=== PATIENT | female | born 1965 | race Caucasian/White ===

== ENCOUNTER 2016-07-23 10:49 | Emergency (ER) | payer SELFPAY ==
[~2016-07-23] VITALS: Ht 172.7 cm; Wt 83.5 kg
[2016-07-23 10:52] VITALS: BP 113/76
== END 2016-07-23 11:34 | disposition home or self-care (01) ==
LOC: ED 11:28
DX: Z76.0 Encounter for issue of repeat prescription (principal); E03.9 Hypothyroidism, unspecified; F32.9 Major depressive disorder, single episode, unspecified
CPT/HCPCS: 99283

== ENCOUNTER 2016-07-26 20:59 | Emergency (ER) | payer MEDICARE ==
[~2016-07-26] VITALS: Ht 172.7 cm; Wt 84.3 kg
[2016-07-26 21:01] VITALS: BP 123/82
[2016-07-26] MEDS ORDERED: KETOROLAC 30 MG/1 ML IM ONE (22:00)
[2016-07-26] MEDS ORDERED: OXYcodone/APAP 5/325MG TABLET PO ONE (22:00)
[2016-07-26] MEDS ORDERED: OXYcodone/APAP 5/325MG TABLET ONE (22:04)
[2016-07-26] MEDS ORDERED: KETOROLAC 30 MG/1 ML ONE (22:04)
== END 2016-07-26 22:19 | disposition home or self-care (01) ==
LOC: ED 22:15
DX: M54.9 Dorsalgia, unspecified (principal); G89.29 Other chronic pain; E03.9 Hypothyroidism, unspecified; M79.7 Fibromyalgia; D64.9 Anemia, unspecified
CPT/HCPCS: 96372; 99283; J1885

== ENCOUNTER 2017-06-01 20:40 | Emergency (ER) | payer MEDICARE ==
[~2017-06-01] VITALS: Ht 172.7 cm; Wt 81.5 kg
[2017-06-01 20:42] VITALS: BP 101/68
== END 2017-06-01 22:47 | disposition home or self-care (01) ==
LOC: ED 22:30
DX: G89.29 Other chronic pain (principal); M79.652 Pain in left thigh; Z76.0 Encounter for issue of repeat prescription; E03.9 Hypothyroidism, unspecified; M79.7 Fibromyalgia; Z90.49 Acquired absence of other specified parts of digestive tract
CPT/HCPCS: 99283

== ENCOUNTER 2019-07-17 05:17 | Emergency (ER) | payer MEDICARE, OTHER ==
[~2019-07-17] VITALS: Ht 172.7 cm; Wt 80.0 kg
[2019-07-17 05:19] VITALS: BP 139/65
[2019-07-17] MEDS ORDERED: MORPHINE IR PO (05:24)
[2019-07-17] MEDS ORDERED: MORPHINE ER PO (05:24)
[2019-07-17] MEDS ORDERED: LEVO125T63 PO (05:24)
[2019-07-17] MEDS ORDERED: GABA300C10 PO (05:24)
--- NOTE | 2019-07-17 05:56 | NUR ---
pt removed monitoring equipment and is refusing to put it back on. pt requesting iv pain medication. Dr. Carver notified. per MD, no iv pain medications during this visit. during medication administration, pt became upset that she was receiving only one pain pill (MS Contin 30mg). pt educated that she normally takes these medications 12 hours apart and that she has an appointment scheduled with her pain management doctor less than 12 hours from administration. pt remains upset that she is not receiveing 2 pills.
--- NOTE | 2019-07-17 06:16 | NUR ---
during medication administration, pt educated that she would be required to stay for 15 minutes after administration for post administration assessment. pt agreeable at that time. upon entering room to dc pt, pt was gone. pt eloped prior to dc paperwork and education.
== END 2019-07-17 06:19 | disposition left against medical advice (07) ==
LOC: ED 05:47
DX: M79.7 Fibromyalgia (principal); R51 Headache; E03.9 Hypothyroidism, unspecified; Z76.0 Encounter for issue of repeat prescription
CPT/HCPCS: 99283